=== PATIENT | female | born 1955 | race Caucasian/White ===

== ENCOUNTER 2021-06-23 07:44 | Outpatient (CLI) | payer MEDICARE, OTHER | END 2021-06-23 07:45 | disposition home or self-care (01) | LOC: ULT 07:44 | PROVIDERS: ATTEND Family Medicine | DX: M46.1 Sacroiliitis, not elsewhere classified (principal); I71.4 Abdominal aortic aneurysm, without rupture | CPT/HCPCS: 76775 ==

== ENCOUNTER 2021-07-13 07:24 | Outpatient (CLI) | payer MEDICARE, OTHER | END 2021-07-13 07:25 | disposition home or self-care (01) | LOC: CT 07:24 | PROVIDERS: ATTEND Family Medicine | DX: I71.4 Abdominal aortic aneurysm, without rupture (principal); D35.01 Benign neoplasm of right adrenal gland; I70.0 Atherosclerosis of aorta | CPT/HCPCS: 74175; 82565 ==

== ENCOUNTER 2021-08-07 14:02 | Outpatient (CLI) | payer MEDICARE, OTHER ==
[2021-08-07 16:07] LABS: Hemoglobin 14.7 g/dL (12.0-15.5); Mean Corpuscular HGB CONC 33.3 g/dL (32.0-36.0); Mean Corpuscular Hemoglobin 32.8 pg (27.0-33.0); Mean Corpuscular Volume 98.4 fl (81.6-98.3); Mean Platelet Volume 10.2 fl (7.4-10.4); Platelet Count 282 10x3/uL (150-450); RBC Distribution Width 12.1 % (11.5-14.5); Red Blood Cell (RBC) Count 4.48 10x6/uL (3.90-5.03); White Blood Cell (WBC) Count 10.6 10x3/uL (3.5-10.5)
[2021-08-07 16:15] LABS: Anion Gap 15 mmol/L (10-20); BUN (Urea Nitrogen) 20 mg/dL (9.8-20.1); Calc. Creatinine Clearance 0 mL/min (70-130); Calcium 9.7 mg/dL (7.8-10.44); Carbon Dioxide 29 mmol/L (23-31); Chloride 102 mmol/L (98-107); Glucose 88 mg/dL (80-115); Potassium 4.2 mmol/L (3.5-5.1); Sodium 142 mmol/L (136-145)
[2021-08-08 00:17] LABS: SARS-CoV-2 PCR by NAA Not Detected (NotDetected)
== END 2021-08-07 14:03 | disposition home or self-care (01) ==
LOC: LABBT 14:02
PROVIDERS: ATTEND Thoracic Surgery (Cardiothoracic Vascular Surgery)
DX: Z01.818 Encounter for other preprocedural examination (principal); Z20.822 Contact with and (suspected) exposure to COVID-19
CPT/HCPCS: 80048; 85027; 93005; U0003; U0005; 93010

== ENCOUNTER 2021-08-07 14:30 | Inpatient (IN) | payer MEDICARE, OTHER ==
[2021-08-12] MEDS ORDERED: Heparin 10,000 UNITS/ 10 ML VIAL ONE (08:37)
[2021-08-12] MEDS ORDERED: Bupivacaine PF 0.5% 30 ML VIAL ONE (08:37)
[2021-08-12] MEDS ORDERED: Xylocaine 1% w/ Epi 1:100K 10 ML VIAL ONE (08:37)
[2021-08-12] MEDS ORDERED: Lidocaine 1% MPF 2 ML VIAL ONE (08:47)
[2021-08-12] MEDS ORDERED: Midazolam HCl 2 mg/2 ml Vial ONE (08:52)
[2021-08-12] MEDS ORDERED: Fentanyl 250 MCG/5 ML VIAL ONE ×2 (09:55→12:39)
[2021-08-12] MEDS ORDERED: ceFAZolin Sodium (SDC) 2 GM/100 ML BAG ONE (10:22)
[2021-08-12] MEDS ORDERED: Ondansetron PF 4 MG/2 ML Vial ONE (10:39)
[2021-08-12] MEDS ORDERED: PROPOFOL 200 MG/20 ML VIAL ONE (10:39)
[2021-08-12] MEDS ORDERED: Lidocaine 1% PF 5 ML VIAL ONE (10:39)
[2021-08-12] MEDS ORDERED: Dexamethasone 20 MG/5 ML VIAL ONE (10:39)
[2021-08-12] MEDS ORDERED: Glycopyrrolate 0.2 MG/ML 5 ML SYRINGE ONE (10:39)
[2021-08-12] MEDS ORDERED: Rocuronium Bromide 10 MG/ML (10ML VIAL) ONE (10:39)
[2021-08-12] MEDS ORDERED: ePHEDrine 50 MG/ML VIAL ONE (10:39)
[2021-08-12] MEDS ORDERED: Protamine Sulfate 50 MG/5 ML VIAL ONE (12:00)
[2021-08-12] MEDS ORDERED: Promethazine HCl 25 MG/ML VIAL IM PRN (12:53)
[2021-08-12] MEDS ORDERED: Acetaminophen 500 MG TAB PO PRN (12:53)
[2021-08-12] MEDS ORDERED: hydrALAZINE 20 MG/ML VIAL SLOW IVP PRN (12:53)
[2021-08-12] MEDS ORDERED: Loratadine 10 MG TAB PO PRN (12:55)
[2021-08-12 14:53] VITALS: BMI 26.3
[2021-08-12] MEDS: Acetaminophen 325 MG TAB PO PRN (15:12)
[2021-08-12] MEDS ORDERED: FLU VACC QS2021-22(65YR UP)/PF 240 MCG/0.7 ML SYRINGE IM ONE (16:00)
[2021-08-12] MEDS: Fentanyl 100 MCG/2 ML VIAL SLOW IVP PRN ×3 (18:35→23:44)
[2021-08-12] MEDS: ceFAZolin 2 GM/Dextrose 50 ML 2 GM in Premix Bag 1 BAG IVPB SCH (18:35)
[2021-08-12] MEDS: Ondansetron PF 4 MG/2 ML Vial IVP PRN (21:06)
[2021-08-13] MEDS: ceFAZolin 2 GM/Dextrose 50 ML 2 GM in Premix Bag 1 BAG IVPB SCH ×2 (01:37→08:14)
[2021-08-13 03:52] LABS: #Lymphocytes 1.9 thou/uL (1.20-3.40); #Monocytes 1.3 thou/uL (0.11-0.59); #Neutrophils 15.9 thou/uL (1.40-6.50); %Basophils 0.2 % (0.0-1.0); %Eosinophils 0.1 % (0.0-10.0); %Lymphocytes 10.1 % (21.0-51.0); %Monocytes 6.7 % (0.0-10.0); Hemoglobin 12.6 g/dL (12.0-16.0); Mean Corpuscular Hemoglobin 33.2 pg (27.0-31.0); Mean Platelet Volume 7.2 fL (7.4-10.4); Platelet Count 260 thou/uL (130-400); RBC Distribution Width 10.9 % (11.5-14.5); Red Blood Cell (RBC) Count 3.79 mill/uL (4.20-5.40); White Blood Cell (WBC) Count 19.1 thou/uL (4.8-10.8)
[2021-08-13 04:10] LABS: Anion Gap 12 mmol/L (10-20); BUN (Urea Nitrogen) 17 mg/dL (9.8-20.1); Calc. Creatinine Clearance 75 mL/min (70-130); Carbon Dioxide 26 mmol/L (23-31); Chloride 104 mmol/L (98-107); Glucose 93 mg/dL (80-115); Potassium 3.9 mmol/L (3.5-5.1); Sodium 138 mmol/L (136-145)
[2021-08-13] MEDS: Acetaminophen 325 MG TAB PO PRN ×2 (05:16→11:51)
[2021-08-13] MEDS: traMADol HCl 50 MG TAB PO PRN ×2 (06:35→11:50)
[2021-08-13 08:36] VITALS: TEMP 98.4
[2021-08-13] MEDS ORDERED: Amlodipine 5 MG TAB PO SCH (09:00)
[2021-08-13] MEDS ORDERED: Docusate 100 MG CAP PO SCH (09:00)
[2021-08-13] MEDS: Ondansetron PF 4 MG/2 ML Vial IVP PRN (11:50)
[2021-08-15] MEDS ORDERED: Aspirin 81 mg Enteric Coated Tablet PO SCH (09:00)
== END 2021-08-13 12:50 | disposition home or self-care (01) | DRG 269 ==
LOC: SURG A 08-12 07:44 → CCU 08-12 13:34
PROVIDERS: ADMIT Thoracic Surgery (Cardiothoracic Vascular Surgery); ATTEND Thoracic Surgery (Cardiothoracic Vascular Surgery)
PROC: 04V03DZ Restriction of Abdominal Aorta with Intraluminal Device, Percutaneous Approach (ICD-10-PCS; principal; 2021-08-12)
DX: I71.4 Abdominal aortic aneurysm, without rupture (principal); M06.9 Rheumatoid arthritis, unspecified; K21.9 Gastro-esophageal reflux disease without esophagitis; E78.00 Pure hypercholesterolemia, unspecified; E78.2 Mixed hyperlipidemia; Z90.49 Acquired absence of other specified parts of digestive tract; Z90.710 Acquired absence of both cervix and uterus
CPT/HCPCS: 36415; 76000; 80048; 85025; 86850; 86900; 86901; C1726; C1768; C1776; J0690; J1100; J1642; J1644; J2250; J2405; J2704; J2720; J3010; J3490; S0020

== ENCOUNTER 2021-11-17 07:46 | Outpatient (CLI) | payer MEDICARE, OTHER ==
[2021-11-17] MEDS ORDERED: Iopamidol 370 76% 100 ML VIAL ONE (09:14)
== END 2021-11-17 07:47 | disposition home or self-care (01) ==
LOC: CT 07:46
PROVIDERS: ATTEND Thoracic Surgery (Cardiothoracic Vascular Surgery)
DX: I71.4 Abdominal aortic aneurysm, without rupture (principal); D35.01 Benign neoplasm of right adrenal gland; K75.3 Granulomatous hepatitis, not elsewhere classified; D73.89 Other diseases of spleen; Z90.710 Acquired absence of both cervix and uterus
CPT/HCPCS: 74174; 82565

== ENCOUNTER 2022-02-18 12:14 | Outpatient (CLI) | payer MEDICARE, OTHER ==
[2022-02-18] MEDS ORDERED: Magnevist 469MG/ML 20 ML VIAL ONE (16:12)
== END 2022-02-18 12:15 | disposition home or self-care (01) ==
LOC: MRI 12:14
PROVIDERS: ATTEND Family Medicine
DX: M51.16 Intervertebral disc disorders with radiculopathy, lumbar region (principal); M96.1 Postlaminectomy syndrome, not elsewhere classified; M47.26 Other spondylosis with radiculopathy, lumbar region; M47.815 Spondylosis without myelopathy or radiculopathy, thoracolumbar region; M47.817 Spondylosis without myelopathy or radiculopathy, lumbosacral region; Z98.890 Other specified postprocedural states
CPT/HCPCS: 72158; A9579

== ENCOUNTER 2025-03-27 07:14 | Outpatient (CLI) | payer MEDICARE, OTHER | END 2025-03-27 07:15 | disposition home or self-care (01) | LOC: ULT 07:14 | PROVIDERS: ATTEND Student in an Organized Health Care Education/Training Program | DX: R10.11 Right upper quadrant pain (principal) | CPT/HCPCS: 76705 ==